=== PATIENT | male | born 1980 | race African-American/Black ===

== ENCOUNTER 2016-11-05 19:03 | Inpatient (IN) | payer MEDICAID, SELFPAY ==
[~2016-11-05] VITALS: Ht 180.3 cm; Wt 98.3 kg
[2016-11-05] MEDS ORDERED: LORazepam 2 MG/ML VIAL IM ONE (19:45)
[2016-11-05] MEDS ORDERED: DiphenhydrAMINE HCL 50 MG/ML VIAL IM ONE (19:45)
[2016-11-05] MEDS ORDERED: HALOPERIDOL LACTATE 5 MG/ML VIAL IM ONE (19:45)
[2016-11-05 20:01] LABS: BASOPHILS % (AUTO) 1.3 % (0.0-2.0); EOSINOPHILS # (AUTO) 0.15 K/uL (0.00-0.70); EOSINOPHILS % (AUTO) 2.03 % (1.0-6.0); HEMATOCRIT 41.9 % (41-53); HEMOGLOBIN 13.5 g/dL (13.5-17.5); LYMPHOCYTES # (AUTO) 2.7 K/uL (1.0-4.8); LYMPHOCYTES % (AUTO) 35.9 % (22.0-44.0); MEAN CORPUSCULAR HEMOGLOBIN 28.8 pg (26.0-34.0); MEAN CORPUSCULAR HGB CONC 32.2 G/dL (31.0-37.0); MEAN CORPUSCULAR VOLUME 89 fL (80-100); MONOCYTES # (AUTO) 0.7 K/uL (0.1-1.0); MONOCYTES % (AUTO) 9.8 % (2.0-9.0); NEUTROPHILS # (AUTO) 3.8 K/uL (1.8-7.7); PLATELET COUNT (AUTO) 282 K/uL (150-450); RED BLOOD CELL COUNT(AUTO) 4.68 MIL/uL (4.50-5.90); RED CELL DISTRIBUTION WIDTH 15.9 % (11.5-14.5); WHITE BLOOD COUNT (AUTO) 7.5 K/uL (4.5-11.0)
[2016-11-05 20:10] LABS: ANION GAP 12 mmol/L (8-16); CARBON DIOXIDE 26 mmol/L (22-29); CHLORIDE 105 mmol/L (98-107); CREATININE 0.99 mg/dL (0.60-1.30); GLOMERULAR FILTR. RATE CALC > 60 mL/min (>60); POTASSIUM 3.8 mmol/L (3.5-5.1); SODIUM SERUM 143 mmol/L (136-145); UREA NITROGEN, BLOOD 8 mg/dL (7-18)
[2016-11-05 20:16] LABS: ALANINE AMINOTRANSFERASE 68 U/L (12-78); ALBUMIN 3.4 g/dL (3.4-5.0); ASPARTATE AMINOTRANSFERASE 52 U/L (15-37); BILIRUBIN,TOTAL 0.2 mg/dL (0.1-1.0); TOTAL PROTEIN, SERUM 7.1 g/dL (6.4-8.2)
[2016-11-05] MEDS ORDERED: LORazepam 2 MG TABLET PO PRN (23:15)
[2016-11-05] MEDS ORDERED: HALOPERIDOL 5 MG TABLET PO PRN (23:15)
[2016-11-05] MEDS ORDERED: ZOLPIDEM TARTRATE 10 MG TABLET PO PRN (23:15)
[2016-11-06 01:00] VITALS: BP 142/96
[2016-11-06 03:21] LABS: CHOL/HDL RATIO 1.9 (4.2-7.3)
[2016-11-06 08:02] LABS: ADD UA MICROSCOPIC NO; APPEARANCE,URINE CLOUDY (CLEAR); GLUCOSE, URINE (UA) NEGATIVE (NEGATIVE); KETONES,URINE NEGATIVE (NEGATIVE); LEUKOCYTE ESTERASE ,URINE NEGATIVE (NEGATIVE); OCCULT BLOOD,URINE NEGATIVE (NEGATIVE); PROTEIN,URINE NEGATIVE (NEGATIVE)
[2016-11-06] MEDS: BENZTROPINE MESYLATE 0.5 MG TABLET PO SCH (17:46)
[2016-11-06] MEDS: HALOPERIDOL 5 MG TABLET PO SCH (17:46)
[2016-11-07] MEDS: HALOPERIDOL 5 MG TABLET PO SCH ×2 (08:04→17:16)
[2016-11-07] MEDS: BENZTROPINE MESYLATE 0.5 MG TABLET PO SCH ×2 (08:04→17:16)
[2016-11-07 09:00] VITALS: BP 124/78
[2016-11-07 16:33] VITALS: BP 114/71
[2016-11-08] MEDS: BENZTROPINE MESYLATE 0.5 MG TABLET PO SCH ×2 (07:55→16:10)
[2016-11-08] MEDS: HALOPERIDOL 5 MG TABLET PO SCH ×2 (07:55→16:10)
[2016-11-08 08:01] VITALS: BP 121/76
[2016-11-08 16:37] VITALS: BP 114/76
[2016-11-09] MEDS: HALOPERIDOL 5 MG TABLET PO SCH (08:09)
[2016-11-09] MEDS: BENZTROPINE MESYLATE 0.5 MG TABLET PO SCH (08:10)
[2016-11-09 08:30] VITALS: BP 115/65
[2016-11-09] MEDS ORDERED: BENZ0.5T6 PO (11:36)
[2016-11-09] MEDS ORDERED: HALO5 PO (11:36)
== END 2016-11-09 13:15 | disposition home or self-care (01) | DRG 750 ==
LOC: EMS 19:05 → 3EC 11-06 11:22
PROVIDERS: ADMIT Psychiatry & Neurology Psychiatry; ATTEND Psychiatry & Neurology Psychiatry
DX: F25.0 Schizoaffective disorder, bipolar type (principal); R45.851 Suicidal ideations; F15.20 Other stimulant dependence, uncomplicated; F12.90 Cannabis use, unspecified, uncomplicated; R45.87 Impulsiveness; F17.210 Nicotine dependence, cigarettes, uncomplicated; Z59.0 Homelessness; Z91.09 Other allergy status, other than to drugs and biological substances; Z80.42 Family history of malignant neoplasm of prostate; Z80.1 Family history of malignant neoplasm of trachea, bronchus and lung
CPT/HCPCS: 96372; 99285; G0480; J1200; J1630; J2060

== ENCOUNTER 2020-01-13 08:28 | Emergency (ER) | payer MEDICAID, OTHER ==
[~2020-01-13] VITALS: Ht 180.3 cm; Wt 100.0 kg
[~2020-01-13 08:28] MED LIST: BENZ0.5T44 PO; HALO5TAB2 PO
[2020-01-13 08:52] VITALS: BP 151/97
== END 2020-01-13 09:05 | disposition home or self-care (01) ==
LOC: EMS 08:28
DX: K40.90 Unilateral inguinal hernia, without obstruction or gangrene, not specified as recurrent (principal); F31.9 Bipolar disorder, unspecified; F17.210 Nicotine dependence, cigarettes, uncomplicated; F12.90 Cannabis use, unspecified, uncomplicated
CPT/HCPCS: Z7502

== ENCOUNTER 2020-01-13 09:35 | Emergency (ER) | payer OTHER ==
[~2020-01-13] VITALS: Ht 177.8 cm; Wt 100.0 kg
[2020-01-13] MEDS ORDERED: LORazepam 1 MG TABLET PO ONE (10:15)
[2020-01-13 11:45] VITALS: BP 147/96
== END 2020-01-13 12:27 | disposition home or self-care (01) ==
LOC: EMS 09:35
DX: F31.9 Bipolar disorder, unspecified (principal); F41.9 Anxiety disorder, unspecified; F17.210 Nicotine dependence, cigarettes, uncomplicated; F12.90 Cannabis use, unspecified, uncomplicated
CPT/HCPCS: Z7502; Z7610

== ENCOUNTER 2022-09-05 09:36 | Inpatient (IN) | payer MEDICAID ==
[~2022-09-05] VITALS: Ht 180.3 cm; Wt 100.5 kg
[~2022-09-05 09:36] MED LIST changes: -BENZ0.5T44 PO; +BENZ0.5T49 PO
[2022-09-05] MEDS ORDERED: PROMETHAZINE HCL 25 MG TABLET PO PRN (12:30)
[2022-09-05] MEDS ORDERED: OLANZapine 5 MG RAPDIS TABLET PO PRN (12:30)
[2022-09-05] MEDS ORDERED: TUBERCULIN, PURIFIED PROTEIN DERIVATIVE 5 TU/0.1 ML SYRINGE ID ONE (12:30)
[2022-09-05] MEDS ORDERED: GuaiFENesin/D-METHORPHAN [SUGAR-FREE] 200-20MG/10 ML SYRUP UDCUP PO PRN (12:30)
[2022-09-05] MEDS ORDERED: ZOLPIDEM TARTRATE 10 MG TABLET PO PRN (12:30)
[2022-09-05] MEDS ORDERED: HydrOXYzine PAMOATE 50 MG CAPSULE PO PRN (12:30)
[2022-09-05] MEDS ORDERED: MAGNESIUM HYDROXIDE SUSPENSION 30 ML UDCUP PO PRN (12:30)
[2022-09-05] MEDS ORDERED: ACETAMINOPHEN 325 MG TABLET PO PRN (12:30)
[2022-09-05] MEDS ORDERED: LOPERAMIDE HCL 2 MG CAPSULE PO PRN (12:30)
[2022-09-05] MEDS ORDERED: MAG HYDROX/AL HYDROX/SIMETH ES 30 ML SUSPENSION UDCUP PO PRN (12:30)
[2022-09-05 13:29] VITALS: BP 126/108
[2022-09-05] MEDS: THIAMINE 100 MG TABLET PO SCH (17:54)
[2022-09-05 20:10] VITALS: BP 124/86
[2022-09-05] MEDS ORDERED: OLANZapine 5 MG RAPDIS TABLET PO SCH (21:00)
[2022-09-05] MEDS ORDERED: MELATONIN 5 MG TABLET PO SCH (21:00)
[2022-09-06 07:54] LABS: BASOPHILS % (AUTO) 1.6 % (0.0-2.0); EOSINOPHILS % (AUTO) 2.3 % (1.0-6.0); HEMATOCRIT 47.2 % (41-53); HEMOGLOBIN 15.4 g/dL (13.5-17.5); LYMPHOCYTES # (AUTO) 3.6 K/uL (1.0-4.8); LYMPHOCYTES % (AUTO) 55.7 % (22.0-44.0); MEAN CORPUSCULAR HEMOGLOBIN 28.8 pg (26.0-34.0); MEAN CORPUSCULAR HGB CONC 32.6 G/dL (31.0-37.0); MEAN CORPUSCULAR VOLUME 88 fL (80-100); MONOCYTES # (AUTO) 0.6 K/uL (0.1-1.0); MONOCYTES % (AUTO) 8.7 % (2.0-9.0); NEUTROPHILS % (AUTO) 31.7 % (40.0-70.0); PLATELET COUNT (AUTO) 280 K/uL (150-450); RED BLOOD CELL COUNT(AUTO) 5.34 MIL/uL (4.50-5.90); RED CELL DISTRIBUTION WIDTH 14.6 % (11.5-14.5)
[2022-09-06 08:01] LABS: HEMOGLOBIN A1C 6.2 % (3.8-5.6)
[2022-09-06] MEDS: THIAMINE 100 MG TABLET PO SCH (08:14)
[2022-09-06 08:25] LABS: ALANINE AMINOTRANSFERASE 37 U/L (12-78); ALBUMIN 3.6 g/dL (3.4-5.0); ALKALINE PHOSPHATASE 84 U/L (46-116); ANION GAP 3 mmol/L (8-16); ASPARTATE AMINOTRANSFERASE 31 U/L (15-37); BILIRUBIN,TOTAL 0.4 mg/dL (0.1-1.0); CALCIUM, TOTAL 8.6 mg/dL (8.8-10.5); CARBON DIOXIDE 29 mmol/L (22-29); CHLORIDE 104 mmol/L (98-107); CHOL/HDL RATIO 2.3 (4.2-7.3); CHOLESTEROL 135 mg/dL (131-200); CREATININE 0.88 mg/dL (0.60-1.30); FREE T4 (FREE THYROXINE) 1.04 ng/dL (0.76-1.46); GLOMERULAR FILTR. RATE CALC > 60 mL/min (>60); GLUCOSE,RANDOM 102 mg/dL (70-110); HDL CHOLESTEROL 59 mg/dL (40-60); LDL CHOL (CALC.) 49 mg/dL (0-130); SODIUM SERUM 136 mmol/L (136-145); THYROID STIMULATING HORMONE 1.05 uIU/mL (0.36-3.74); TOTAL PROTEIN, SERUM 7.1 g/dL (6.4-8.2); TRIGLYCERIDES 137 mg/dL (15-150)
[2022-09-06 08:57] VITALS: BP 120/80
[2022-09-06] MEDS ORDERED: FLUoxetine HCL 20 MG CAPSULE PO SCH (09:00)
[2022-09-06] MEDS ORDERED: FOLIC ACID 1 MG TABLET PO SCH (09:00)
[2022-09-06] MEDS ORDERED: NALTREXONE HCL 50 MG TABLET PO SCH (09:00)
[2022-09-06] MEDS ORDERED: MULTIVITAMINS WITH MINERALS, THERAPEUTIC TABLET PO SCH (09:00)
[2022-09-06] MEDS ORDERED: OMEGA-3/DHA/EPA/FISH OIL 1,000 MG CAPSULE PO SCH (09:00)
[2022-09-06] MEDS ORDERED: FLUO20CA36 PO (15:52)
[2022-09-06] MEDS ORDERED: OMEG-135 PO (15:52)
[2022-09-06] MEDS ORDERED: NALT50TA PO (15:52)
[2022-09-06] MEDS ORDERED: MELA5TAB40 PO (15:52)
[2022-09-06] MEDS ORDERED: OLAN5TAB94 PO (15:52)
== END 2022-09-06 17:30 | disposition home or self-care (01) | DRG 753 ==
LOC: B2S 11:58
PROVIDERS: ADMIT Psychiatry & Neurology Psychiatry; ATTEND Psychiatry & Neurology Psychiatry
DX: F31.30 Bipolar disorder, current episode depressed, mild or moderate severity, unspecified (principal); R45.851 Suicidal ideations; Z91.148 Patient's other noncompliance with medication regimen for other reason; F17.210 Nicotine dependence, cigarettes, uncomplicated; Z55.9 Problems related to education and literacy, unspecified; Z59.9 Problem related to housing and economic circumstances, unspecified; Z63.9 Problem related to primary support group, unspecified; Z65.3 Problems related to other legal circumstances; Z59.00 Homelessness unspecified; Z56.0 Unemployment, unspecified; Z88.8 Allergy status to other drugs, medicaments and biological substances; Z79.899 Other long term (current) drug therapy
CPT/HCPCS: 80053; 80061; 83036; 84439; 84443; 85025; 86592; Q9967

== ENCOUNTER 2023-07-30 03:28 | Inpatient (IN) | payer MEDICAID, OTHER ==
[~2023-07-30] VITALS: Ht 175.3 cm; Wt 75.0 kg
[~2023-07-30 03:28] MED LIST changes: -BENZ0.5T49 PO; +FLUO20CA36 PO; -HALO5TAB2 PO; +MELA5TAB40 PO; +NALT50TA6 PO; +OLAN5TAB94 PO; +OMEG-135 PO
[2023-07-30 04:12] LABS: EOSINOPHILS % (AUTO) 0.3 % (1.0-6.0); HEMATOCRIT 50.1 % (41-53); HEMOGLOBIN 16.5 g/dL (13.5-17.5); LYMPHOCYTES % (AUTO) 23.5 % (22.0-44.0); MEAN CORPUSCULAR HEMOGLOBIN 28.8 pg (26.0-34.0); MEAN CORPUSCULAR HGB CONC 32.9 G/dL (31.0-37.0); MEAN CORPUSCULAR VOLUME 88 fL (80-100); MONOCYTES # (AUTO) 0.6 K/uL (0.1-1.0); NEUTROPHILS % (AUTO) 70.2 % (40.0-70.0); PLATELET COUNT (AUTO) 336 K/uL (150-450); RED BLOOD CELL COUNT(AUTO) 5.73 MIL/uL (4.50-5.90); RED CELL DISTRIBUTION WIDTH 14.8 % (11.5-14.5); WHITE BLOOD COUNT (AUTO) 12.8 K/uL (4.5-11.0)
[2023-07-30 04:15] LABS: ANION GAP 15 mmol/L (8-16); CALCIUM, TOTAL 8.2 mg/dL (8.8-10.5); CARBON DIOXIDE 26 mmol/L (22-29); CHLORIDE 104 mmol/L (98-107); CREATININE 0.94 mg/dL (0.60-1.30); GLOMERULAR FILTR. RATE CALC > 60 mL/min (>60); GLUCOSE,RANDOM 130 mg/dL (70-110); POTASSIUM 3.1 mmol/L (3.5-5.1); SODIUM SERUM 145 mmol/L (136-145); UREA NITROGEN, BLOOD 15 mg/dL (7-18)
[2023-07-30 04:16] LABS: ALCOHOL, BLOOD (SERUM) 212 mg/dL (0-10)
[2023-07-30] MEDS: DiphenhydrAMINE HCL 50 MG/ML VIAL IM ONE (04:24)
[2023-07-30] MEDS: LORazepam 2 MG/ML VIAL IM ONE (04:24)
[2023-07-30] MEDS: HALOPERIDOL LACTATE 5 MG/ML VIAL IM ONE (04:24)
[2023-07-30 04:40] LABS: ALANINE AMINOTRANSFERASE 40 U/L (12-78); ALBUMIN 4.1 g/dL (3.4-5.0); ALKALINE PHOSPHATASE 99 U/L (46-116); ASPARTATE AMINOTRANSFERASE 50 U/L (15-37); TOTAL PROTEIN, SERUM 8.5 g/dL (6.4-8.2)
[2023-07-30 05:10] LABS: COVID AG,FIA SOURCE NASAL SWAB
[2023-07-30 05:37] LABS: SARS-COV2 (COVID) ANTIGEN,FIA Negative (Negative)
[2023-07-30 05:41] LABS: ALCOHOL, URINE DRUG SCREEN POSITIVE (NEGATIVE); AMPHET/METH SCREEN,URINE POSITIVE (NEGATIVE); BARBITURATE SCREEN, URINE NEGATIVE (NEGATIVE); BENZODIAZEPINES SCREEN,URINE NEGATIVE (NEGATIVE); CANNABINOID SCREEN,URINE POSITIVE (NEGATIVE); COCAINE SCREEN,URINE NEGATIVE (NEGATIVE); METHADONE SCREEN, URINE NEGATIVE (NEGATIVE); OPIATE SCREEN,URINE NEGATIVE (NEGATIVE); PHENCYCLIDINE SCREEN,URINE NEGATIVE (NEGATIVE)
[2023-07-30] MEDS: SODIUM CHLORIDE 0.9% 1,000 ML IV ONE ×2 (06:49→15:22)
[2023-07-30] MEDS ORDERED: ZOLPIDEM TARTRATE 10 MG TABLET PO PRN (13:00)
[2023-07-30] MEDS ORDERED: HALOPERIDOL 5 MG TABLET PO PRN (13:00)
[2023-07-30 14:14] LABS: APPEARANCE,URINE TURBID (CLEAR); BILIRUBIN,URINE NEGATIVE (NEGATIVE); COLOR,URINE LIGHT ORANGE (YELLOW); GLUCOSE, URINE (UA) TRACE mg/dL (NEGATIVE); KETONES,URINE NEGATIVE (NEGATIVE); LEUKOCYTE ESTERASE ,URINE NEGATIVE (NEGATIVE); NITRATE,URINE NEGATIVE (NEGATIVE); OCCULT BLOOD,URINE SMALL (NEGATIVE); PROTEIN,URINE TRACE mg/dL (NEGATIVE)
[2023-07-30 14:20] LABS: BACTERIA,URINE None Seen /HPF (None Seen); WBC,URINE None Seen /HPF (0-5)
[2023-07-30 14:21] LABS: AMORPHOUS SEDIMENT,UR Many /LPF (None Seen)
[2023-07-30] MEDS: POTASSIUM CHLORIDE 20 MEQ ER TABLET PO ONE (14:47)
[2023-07-30] MEDS: AmLODIPine BESYLATE 5 MG TABLET PO ONE ×2 (16:18→18:23)
[2023-07-30] MEDS: HydrALAZINE HCL 20 MG/ML VIAL IVP ONE (17:39)
[2023-07-30] MEDS: LORazepam 2 MG TABLET PO ONE (21:04)
[2023-07-30 21:10] LABS: ANION GAP 9 mmol/L (8-16); CALCIUM, TOTAL 7.8 mg/dL (8.8-10.5); CARBON DIOXIDE 27 mmol/L (22-29); CHLORIDE 102 mmol/L (98-107); CREATININE 1.05 mg/dL (0.60-1.30); GLOMERULAR FILTR. RATE CALC > 60 mL/min (>60); GLUCOSE,RANDOM 120 mg/dL (70-110); POTASSIUM 3.8 mmol/L (3.5-5.1); SODIUM SERUM 138 mmol/L (136-145); UREA NITROGEN, BLOOD 14 mg/dL (7-18)
[2023-07-30 21:31] LABS: CREATINE KINASE, TOTAL ONLY 2693 U/L (39-308)
[2023-07-30] MEDS ORDERED: ONDANSETRON HCL 4 MG/2 ML VIAL IVP PRN (23:15)
[2023-07-30] MEDS ORDERED: ACETAMINOPHEN 325 MG TABLET PO PRN (23:15)
[2023-07-31] MEDS: CefTRIAXone 1 GM/DEXTROSE 50 ML IV ONE (00:01)
[2023-07-31] MEDS: SODIUM CHLORIDE 0.9% 1,000 ML IV SCH (00:03)
[2023-07-31] MEDS: SODIUM CHLORIDE 0.9% 500 ML IV ONE (00:03)
[2023-07-31] MEDS: HEPARIN SODIUM,PORCINE 5,000 UNITS/ML VIAL SQ SCH (00:06)
[2023-07-31 00:55] VITALS: BP 148/97; PULSE 94; RESP 18; TEMP 98.6
[2023-07-31 03:54] VITALS: BP 147/90; PULSE 98; RESP 18; TEMP 97.9
[2023-07-31] MEDS: DOCUSATE SODIUM 100 MG CAPSULE PO SCH (08:08)
[2023-07-31 08:10] LABS: BASOPHILS % (AUTO) 1.1 % (0.0-2.0); EOSINOPHILS % (AUTO) 1.4 % (1.0-6.0); HEMATOCRIT 44.6 % (41-53); HEMOGLOBIN 14.9 g/dL (13.5-17.5); LYMPHOCYTES # (AUTO) 2.7 K/uL (1.0-4.8); MEAN CORPUSCULAR HEMOGLOBIN 29.1 pg (26.0-34.0); MEAN CORPUSCULAR HGB CONC 33.3 G/dL (31.0-37.0); MEAN CORPUSCULAR VOLUME 87 fL (80-100); MONOCYTES # (AUTO) 0.7 K/uL (0.1-1.0); MONOCYTES % (AUTO) 7.3 % (2.0-9.0); NEUTROPHILS # (AUTO) 5.7 K/uL (1.8-7.7); NEUTROPHILS % (AUTO) 61.2 % (40.0-70.0); PLATELET COUNT (AUTO) 263 K/uL (150-450); RED BLOOD CELL COUNT(AUTO) 5.11 MIL/uL (4.50-5.90); RED CELL DISTRIBUTION WIDTH 14.5 % (11.5-14.5); WHITE BLOOD COUNT (AUTO) 9.2 K/uL (4.5-11.0)
[2023-07-31 08:36] LABS: ANION GAP 8 mmol/L (8-16); CALCIUM, TOTAL 7.8 mg/dL (8.8-10.5); CARBON DIOXIDE 27 mmol/L (22-29); CHLORIDE 102 mmol/L (98-107); CREATININE 0.93 mg/dL (0.60-1.30); GLOMERULAR FILTR. RATE CALC > 60 mL/min (>60); GLUCOSE,RANDOM 107 mg/dL (70-110); POTASSIUM 3.2 mmol/L (3.5-5.1); SODIUM SERUM 137 mmol/L (136-145); UREA NITROGEN, BLOOD 10 mg/dL (7-18)
[2023-07-31 08:39] LABS: CREATINE KINASE, TOTAL ONLY 2299 U/L (39-308)
[2023-07-31] MEDS ORDERED: POTASSIUM CHL 10 MEQ/WATER 50 ML IV PRN (10:30)
[2023-07-31] MEDS: AmLODIPine BESYLATE 5 MG TABLET PO SCH (15:41)
[2023-07-31 16:05] VITALS: BP 137/86; PULSE 98; RESP 20; TEMP 98.3
[2023-07-31] MEDS: POTASSIUM CHLORIDE 20 MEQ ER TABLET PO PRN (19:44)
[2023-07-31 19:45] VITALS: BP 174/112; PULSE 94; RESP 20; TEMP 98.5
[2023-07-31] MEDS: OLANZapine 5 MG RAPDIS TABLET PO SCH (19:45)
[2023-07-31] MEDS: MELATONIN 5 MG TABLET PO SCH (19:45)
[2023-07-31] MEDS: LORazepam 2 MG/ML VIAL IVP ONE (21:04)
[2023-07-31 21:52] VITALS: BP 157/109; PULSE 93; RESP 20
[2023-07-31] MEDS: LABETALOL HCL 5 MG/ML 20 ML VIAL IVP ONE (21:55)
[2023-07-31 23:07] VITALS: BP 122/80; PULSE 88; RESP 20
[2023-08-01 06:16] VITALS: BP 147/94; PULSE 80; RESP 20; TEMP 98.1
[2023-08-01 07:30] VITALS: BP 140/90; PULSE 82; RESP 20; TEMP 98.4
[2023-08-01] MEDS: OMEGA-3/DHA/EPA/FISH OIL 1,000 MG CAPSULE PO SCH (08:39)
[2023-08-01] MEDS: NALTREXONE HCL 50 MG TABLET PO SCH (08:39)
[2023-08-01] MEDS: FLUoxetine HCL 20 MG CAPSULE PO SCH (08:39)
[2023-08-01 15:20] VITALS: BP 138/86; PULSE 86; RESP 20; TEMP 98.1
[2023-08-02 05:30] VITALS: BP 158/98; PULSE 83; RESP 19; TEMP 97.7
[2023-08-02] MEDS: LORazepam 2 MG TABLET PO PRN (05:32)
[2023-08-02 07:27] VITALS: BP 129/69; PULSE 86; RESP 18; TEMP 98.2
[2023-08-02] MEDS ORDERED: AMLO-257 PO (10:27)
[2023-08-02] MEDS ORDERED: FLUO20CA36 PO (10:27)
[2023-08-02] MEDS ORDERED: NALT50TA33 PO (10:27)
[2023-08-02] MEDS ORDERED: OLAN5TAB94 PO (10:27)
== END 2023-08-02 13:50 | disposition home or self-care (01) | DRG 351 ==
LOC: EMS 03:28 → B2S 21:26 → UNDOADMIN 21:26 → 6S 07-31 00:25 → 6N 07-31 07:06
PROVIDERS: ADMIT Internal Medicine; ATTEND Internal Medicine
DX: M62.82 Rhabdomyolysis (principal); R65.11 Systemic inflammatory response syndrome (SIRS) of non-infectious origin with acute organ dysfunction; I21.3 ST elevation (STEMI) myocardial infarction of unspecified site; G92.9 Unspecified toxic encephalopathy; N17.9 Acute kidney failure, unspecified; E87.6 Hypokalemia; R03.0 Elevated blood-pressure reading, without diagnosis of hypertension; F29 Unspecified psychosis not due to a substance or known physiological condition; Z20.822 Contact with and (suspected) exposure to COVID-19; F19.10 Other psychoactive substance abuse, uncomplicated; F41.9 Anxiety disorder, unspecified; F25.9 Schizoaffective disorder, unspecified; I16.0 Hypertensive urgency; R00.0 Tachycardia, unspecified; Z79.899 Other long term (current) drug therapy; F17.200 Nicotine dependence, unspecified, uncomplicated; F31.9 Bipolar disorder, unspecified
CPT/HCPCS: 71045; 80048; 80053; 80307; 81001; 82550; 83605; 83735; 84132; 84145; 85025; 87040; 99291; G0480; J0360; J0696; J1200; J1630; J1644; J2060; J3490; J7030; Q9967; 36415-L1; 36415-TC